=== PATIENT | female | born 1995 | race Caucasian/White ===

== ENCOUNTER 2016-05-24 21:36 | Emergency (ER) | payer OTHER ==
[~2016-05-24] VITALS: Ht 162.6 cm; Wt 86.2 kg
[2016-05-24 21:47] VITALS: BP 136/93
[2016-05-24] MEDS ORDERED: ACETAMINOPHEN 325 MG TABLET PO ONE (23:00)
[2016-05-24] MEDS ORDERED: IBUPROFEN 400 MG TABLET PO ONE (23:00)
[2016-05-24] MEDS ORDERED: IBUPROFEN 400 MG TABLET ONE (23:02)
[2016-05-24] MEDS ORDERED: ACETAMINOPHEN ES 500 MG TABLET ONE (23:02)
== END 2016-05-24 23:12 | disposition home or self-care (01) ==
LOC: ER 21:38
DX: S39.011A Strain of muscle, fascia and tendon of abdomen, initial encounter (principal); F41.9 Anxiety disorder, unspecified; Z88.2 Allergy status to sulfonamides; Z88.8 Allergy status to other drugs, medicaments and biological substances; V49.9XXA Car occupant (driver) (passenger) injured in unspecified traffic accident, initial encounter; Y93.89 Activity, other specified; Y92.413 State road as the place of occurrence of the external cause; Y99.8 Other external cause status
CPT/HCPCS: 99283; A4606; Z7610